=== PATIENT | female | born 2000 | race Caucasian/White ===

== ENCOUNTER 2024-09-01 15:09 | Emergency (ER) | payer BC ==
[~2024-09-01] VITALS: Ht 167.6 cm; Wt 125.2 kg
[2024-09-01] MEDS ORDERED: METOPROLOL SUCC25 M2 PO (15:35)
[2024-09-01] MEDS ORDERED: GABAPENTIN400 MG PO (15:35)
[2024-09-01] MEDS ORDERED: METHYLPRED-DP4 MG PO (15:35)
[2024-09-01] MEDS ORDERED: CHLORZOXAZONE500 M2 PO (15:35)
[2024-09-01] MEDS ORDERED: LYVISPAH10 M1 PO (15:36)
[2024-09-01] MEDS ORDERED: Ondansetron4 MG PO (15:36)
[2024-09-01] MEDS ORDERED: MAGNESIUM OXID400 MG PO (15:36)
[2024-09-01] MEDS ORDERED: ESZOPICLONE1 MG PO (15:37)
[2024-09-01] MEDS ORDERED: CELECOXIB100 M1 PO (15:37)
[2024-09-01] MEDS ORDERED: TOPIRAMATE25 M3 PO (15:37)
[2024-09-01] MEDS ORDERED: RIZATRIPTAN10 MG PO (15:37)
[2024-09-01] MEDS ORDERED: Lidocaine Hydrochloride 2 ML AMP SC ONE (15:50)
[2024-09-01] MEDS ORDERED: Ketorolac Tromethamine 30 MG/ML VIAL IM ONE (15:50)
[2024-09-01] MEDS ORDERED: Acetaminophen/Hydrocodone 5 MG/325 MG TABLET PO ONE (16:20)
== END 2024-09-01 16:19 | disposition home or self-care (01) ==
LOC: ED 15:09
DX: S61.411A Laceration without foreign body of right hand, initial encounter (principal); Z91.040 Latex allergy status; Z79.52 Long term (current) use of systemic steroids; Z79.899 Other long term (current) drug therapy; Z88.1 Allergy status to other antibiotic agents; Z88.8 Allergy status to other drugs, medicaments and biological substances; W26.8XXA Contact with other sharp object(s), not elsewhere classified, initial encounter; Y93.89 Activity, other specified; Y92.89 Other specified places as the place of occurrence of the external cause; Y99.8 Other external cause status